=== PATIENT | male | born 1955 | race Caucasian/White ===

== ENCOUNTER 2018-05-31 09:39 | Inpatient (IN) ==
[2018-05-31] MEDS ORDERED: ROBAXIN PO PRN (15:33)
[2018-05-31] MEDS ORDERED: ZOFRAN IV PRN (15:33)
[2018-05-31] MEDS ORDERED: ZOFRAN ODT PO PRN (15:33)
[2018-05-31] MEDS ORDERED: D5W 1,000 ML IV PRN (15:33)
[2018-05-31] MEDS ORDERED: DULCOLAX PR PRN (15:33)
[2018-05-31] MEDS ORDERED: SENOKOT PO PRN (15:33)
[2018-05-31] MEDS ORDERED: IMODIUM PO PRN (15:33)
[2018-05-31] MEDS ORDERED: TUBERSOL ID ONE (15:33)
[2018-05-31] MEDS ORDERED: SALINE LOCK IV FLUID XX ONE (15:33)
[2018-05-31] MEDS ORDERED: TYLENOL PO PRN (15:33)
[2018-05-31] MEDS ORDERED: DESYREL PO PRN (15:33)
[2018-05-31] MEDS ORDERED: MAALOX PLUS LIQUID PO PRN (15:33)
[2018-05-31] MEDS ORDERED: PHENOBARBITAL IV PRN (15:33)
[2018-05-31] MEDS ORDERED: BENTYL PO PRN (15:33)
[2018-05-31] MEDS ORDERED: M.V.I.-12 10 ML, FOLIC ACID 1 MG, MAGNESIUM SULFATE 1 GM, THIAMINE 100 MG in NS 1,000 ML IV ONE (16:00)
[2018-05-31] MEDS: MOTRIN PO PRN (16:02)
[2018-05-31] MEDS: ATARAX PO PRN (16:12)
[2018-05-31] MEDS: LIBRIUM PO SCH ×2 (16:12→21:53)
[2018-05-31 16:56] LABS: URINE SOURCE VOIDED
[2018-05-31 16:58] LABS: BILIRUBIN URINE NEGATIVE (NEGATIVE); BLOOD URINE NEGATIVE (NEGATIVE); CLARITY CLEAR (CLEAR); COLOR YELLOW; GLUCOSE URINE NEGATIVE (NEGATIVE); KETONE URINE NEGATIVE (NEGATIVE); LEUKOCYTES URINE NEGATIVE (NEGATIVE); NITRITE URINE NEGATIVE (NEGATIVE); PH URINE 6.5; PROTEIN URINE NEGATIVE (NEGATIVE); SP GRAVITY URINE 1.005; UROBILINOGEN URINE NORMAL
[2018-05-31 17:00] LABS: HEMATOCRIT 39.6 % (42.0-52.0); HEMOGLOBIN 13.5 g/dL (14.0-18.0); MCH 32.2 PG (27-31); MCHC 34.1 g/dL (33-37); MCV 94.5 FL (81-99); MPV 8.8 FL (7.4-10.4); RBC 4.19 XMIL (4.7-6.1); RDW 15.2 % (11.5-14.5); WBC 7.19 X1000 (4.8-10.8)
[2018-05-31 17:10] LABS: UR AMPHETAMINES QUAL NONE DETECTED (NONE DETECT); UR BARBITUATES QUAL NONE DETECTED (NONE DETECT); UR BENZODIAZEPIN QUAL PRESUMPTIVE POSITIVE (NONE DETECT); UR CANNABINOIDS QUAL NONE DETECTED (NONE DETECT); UR COCAINE QUAL NONE DETECTED (NONE DETECT); UR METHADONE QUAL NONE DETECTED (NONE DETECT); UR METHAMPHETAMINE QUAL NONE DETECTED (NONE DETECT); UR OPIATES QUAL PRESUMPTIVE POSITIVE (NONE DETECT); UR OXYCODONE QUAL NONE DETECTED (NONE DETECT); UR PCP QUAL NONE DETECTED (NONE DETECT); UR PROPOXYPHENE QUAL NONE DETECTED (NONE DETECT); UR TCA QUAL NONE DETECTED (NONE DETECT)
[2018-05-31 17:13] LABS: AMYLASE 53 U/L (20-200); INR 0.97; LIPASE 67 U/L (13-60); PROTIME 13.4 Seconds (11.0-16.0)
[2018-05-31 17:16] LABS: AGAP 11; ALBUMIN 4.1 g/dL (3.5-5.0); ALKALINE PHOSPHATASE 103 U/L (32-122); BUN 9 mg/dL (8-22); CHLORIDE 102 mmol/L (98-107); COSMO 277; CREATININE 0.7 mg/dL (0.7-1.2); ESTIMATED GFR > 60; GLUCOSE 113 mg/dL (70-104); GOT 22 U/L (10-34); GPT 34 U/L (10-44); POTASSIUM 4.1 mmol/L (3.5-5.1); SODIUM 139 mmol/L (136-145); TCO2 26 mmol/L (25-35); TOTAL PROTEIN 7.1 g/dL (6.3-8.3)
[2018-05-31] MEDS ORDERED: FLU VACCINE IM ONE (18:25)
[2018-05-31] MEDS: NICODERM PATCH TD PRN (18:28)
[2018-05-31] MEDS: SEROQUEL PO PRN (21:53)
[2018-06-01] MEDS: LIBRIUM PO SCH ×3 (03:48→15:33)
[2018-06-01] MEDS: PROTONIX PO SCH (06:21)
[2018-06-01] MEDS: THERA M PLUS PO SCH ×2 (07:51→09:13)
[2018-06-01] MEDS: VITAMIN B-1 PO SCH ×2 (07:51→09:14)
[2018-06-01] MEDS: FOLIC ACID PO SCH ×2 (07:51→09:13)
[2018-06-01] MEDS: BUSPAR PO SCH ×3 (08:40→18:44)
[2018-06-01] MEDS: PRILOSEC PO SCH (08:41)
[2018-06-01] MEDS: MOTRIN PO PRN ×2 (09:12→17:36)
[2018-06-01] MEDS: NICODERM PATCH TD PRN (17:29)
[2018-06-02] MEDS: PROTONIX PO SCH (06:59)
[2018-06-02] MEDS: PRILOSEC PO SCH (06:59)
[2018-06-02] MEDS: MOTRIN PO PRN (07:00)
--- NOTE | 2018-06-02 08:06 | PROGRESS NOTE ---
DATE: 06/01/2018 SUBJECTIVE: Patient seen and examined by myself on 06/01. The patient notes he is actually starting to look a little bit better. He still is very weak and fatigued having some difficulty getting to the restroom. He is eating better. He notes he did not sleep last night. He states that his tremors are actually a little bit better. PHYSICAL EXAMINATION: Vital Signs: Reviewed. Temperature 97.5 degrees, pulse 46 to 67, respiratory 20, and BP 156/76. General: Patient is awake and alert. He is in no current respiratory distress. He appears to be in less overall withdrawal than yesterday. HEENT: Normocephalic. Neck: Supple. CARDIOVASCULAR: Regular rate. No murmurs. Lungs: Chest clear and nonlabored. Abdomen: Soft. Extremities: Moves all extremities. ASSESSMENT: 1. Nausea and vomiting. 2. Abdominal pain. 3. Myalgias. 4. Paresthesias. 5. Tremors. 6. Myalgias. 7. Alcohol abuse withdrawal and stabilization. PLAN: We will continue patient in the hospital. Continue high-dose Librium taper. Continue to wean. Continue counseling. Further orders as needed. cc: Micah Fong MD
[2018-06-02] MEDS: LIBRIUM PO SCH ×5 (08:14→17:25)
[2018-06-02] MEDS: VITAMIN B-1 PO SCH (08:14)
[2018-06-02] MEDS: FOLIC ACID PO SCH (08:16)
[2018-06-02] MEDS: THERA M PLUS PO SCH (08:16)
[2018-06-02] MEDS: BUSPAR PO SCH ×3 (08:16→17:25)
[2018-06-02] MEDS: PRINIVIL PO SCH (11:39)
--- NOTE | 2018-06-02 18:34 | PROGRESS NOTE ---
DATE: 06/02/2018 SUBJECTIVE: Overall patient notes that he did not sleep well, but he started to eat better. Muscle aches, tremors and myalgias are all improving. Sweating has improved. Denies any fevers or chills. PHYSICAL EXAMINATION: Vital Signs: Reviewed. Heart rate is stable. Blood pressure is stable. General: He is awake, alert. He is in no distress. HEENT: Normocephalic. Neck: Supple. Cardiovascular: Regular rate. Chest: Clear. Abdomen: Soft. Extremities: Moves all extremities. Neurologic: No focal changes. ASSESSMENT: 1. Nausea, vomiting. 2. Abdominal pain. 3. Myalgias. 4. Paresthesias. 5. Paroxysmal sweating. 6. Alcohol abuse withdrawal with continued stabilization. PLAN: We will continue patient in the hospital. Continue Librium, decreased to 25 three times a day. Will begin discussing with patient naltrexone versus Vivitrol shots for MAC therapy. Further orders as needed. cc: Micah Fong MD
[2018-06-02] MEDS: ATARAX PO PRN (20:51)
[2018-06-02] MEDS: SEROQUEL PO PRN (20:52)
[2018-06-03] MEDS: PROTONIX PO SCH (06:17)
[2018-06-03] MEDS: THERA M PLUS PO SCH (09:04)
[2018-06-03] MEDS: BUSPAR PO SCH (09:04)
[2018-06-03] MEDS: PRINIVIL PO SCH (09:05)
[2018-06-03] MEDS: FOLIC ACID PO SCH (09:05)
[2018-06-03] MEDS: VITAMIN B-1 PO SCH (09:05)
[2018-06-03] MEDS: LIBRIUM PO SCH (09:05)
--- NOTE | 2018-06-03 10:13 | HISTORY AND PHYSICAL ---
CHIEF COMPLAINT: Nausea and vomiting. HISTORY OF PRESENT ILLNESS: The patient is a 63-year-old male who presented to [facility] secondary to chronic alcohol use and abuse. Alcohol has destroyed his relationship with his kids. He actually just fell approximately 6 weeks ago, and had a fracture in his back due to alcoholism. PAST MEDICAL HISTORY: Fracture of his lower back 6 weeks ago. Chronic reflux. History of DTs and seizures due to withdrawal. History of PTSD. MEDICATIONS: No current medications. ALLERGIES: No known allergies. REVIEW OF SYSTEMS: CIWA score is 14 secondary to nausea, vomiting, abdominal pain, tremors, myalgias, paresthesias. Notes he has had and appetite, and decreased oral intake. He has a history of seizures and blackouts due to alcoholism. He denies any current fevers or chills. Denies any dysuria, frequency, or urgency. Denies hesitancy, polyuria or polydipsia. Denies any skin rashes, weight loss or weight gain. SUBSTANCE ABUSE HISTORY: Patient notes that he was in treatment in 2007 in [facility] for 10 days, and unfortunately started drinking almost immediately. He started drinking alcohol at 21 and had gotten up to a fifth of vodka a day. States that he actually was sober for approximately 10 years, and then got into a bad relationship, got 3 years ago, and has been drinking every day since. He started smoking at age 17; currently smokes a half to a whole pack a day. FAMILY HISTORY: Noncontributory. PHYSICAL EXAMINATION: The patient is awake and alert. He is in no current distress. VITAL SIGNS: Stable. HEENT: Normocephalic and atraumatic. ERMELINDA. NECK: Supple. No JVD. CARDIOVASCULAR: Regular rate. No murmurs. LUNGS: Chest clear and nonlabored. ABDOMEN: Soft. Nondistended. EXTREMITIES: Moves all extremities. ASSESSMENT: 1. Nausea and vomiting. 2. Abdominal pain. 3. Myalgias. 4. Paresthesias. 5. History of blackouts due to alcoholism. 6. Chronic alcoholism. 7. Chronic tobacco abuse. 8. Chronic anxiety with PTSD. PLAN: We will continue patient in the hospital, place on high-dose Librium taper, begin counseling. We will follow symptomatically. Further orders as needed. cc: Micah Fong MD
[2018-06-03] MEDS: MOTRIN PO PRN (10:43)
--- NOTE | 2018-06-03 10:51 | DISCHARGE SUMMARY ---
ADMISSION DATE: 05/31/2018 DISCHARGE DATE: 06/03/2018 DISCHARGE DIAGNOSIS: 1. Nausea vomiting resolved. 2. Abdominal pain resolved. 3. Tremors, resolved. 4. Myalgias, resolved. 5. Alcohol abuse withdrawal and stabilization, home naltrexone. 6. Chronic back pain due to recent fracture. 7. Chronic anxiety with post traumatic stress disorder. CONSULTATIONS: None. PROCEDURE: None. BRIEF HOSPITAL COURSE: The patient is a 63-year-old male who presented to the hospital, treated in usual fashion, placed on high-dose Librium taper, continued to wean down. On discharge he is awake alert. He is in no distress. We started him on naltrexone which he is tolerating very well. DISPOSITION: Patient will be discharged home. Discussed with him that naltrexone is a flotation device that can help him from drinking that it will not force him or stop him from drinking. Discussed patient needs to continue with outpatient AA meetings. Should stay on naltrexone for a minimum of 6 months. cc: Micah Fong MD
[2018-06-03 12:09] VITALS: BP 146/78
== END 2018-06-03 13:09 | disposition home or self-care (01) | DRG 897 ==
LOC: P.MEDSURG 14:59
PROVIDERS: ADMIT Family Medicine; ATTEND Family Medicine
CPT/HCPCS: 80053; 80104; 80301; 80305; 80307; 80320; 82055; 82150; 83690; 85027; 85610; 86580; A9270; G0431; G0434; G0477; G0480; G6040; J3411; J3475; J7030